=== PATIENT | female | born 1955 | race African-American/Black ===

== ENCOUNTER → 2016-12-02 | Outpatient (CLI) | payer OTHER ==
[~2016-12-02] MED LIST: AMBIEN 10 MG TA10 MG PO; ASPIRIN EC81 M1 PO; BIAXIN500 MG PO; CENTRUM SILVER1 EAC3 PO; COLACE100 MG PO; DILTIAZEM 24HR240 M1 PO; FISH OIL 1,0001 EAC5 PO; FLAGYL500 MG PO; FLEXERIL PO; HYDROCODONE-APA1 TA1 PO; LEVOTHYROXIN0.075 MG PO; LORTAB 7.5/5001 TA3 PO; LYRICA150 MG PO; MIRALAX17 G1 PO; MIRALAX17 GM PO; NEURONTIN 300300 M1 PO; NORCO 10-325 T1 EACH PO; NORCO 5-325 TA1 EACH PO; NORVASC10 MG PO; ONDANSETRON HCL4 M2 PO; PEPCID20 MG PO; PERCOCET 10-321 EACH PO; PHENERGAN 25 MG25 M1 PO; PROTONIX40 M1 PO; SENNA PO; TRIAMTERENE-HC1 EAC1 PO; XANAX 0.25 MG0.25 MG PO
== END ==
LOC: RAD 11:35
DX: M54.5 Low back pain (principal); M25.552 Pain in left hip; M79.605 Pain in left leg

== ENCOUNTER → 2017-01-28 | Outpatient (CLI) | payer OTHER | LOC: RAD 14:40 | DX: R07.81 Pleurodynia (principal); J98.11 Atelectasis; G89.29 Other chronic pain; Z91.81 History of falling ==

== ENCOUNTER 2017-01-31 18:41 | Observation (INO) | payer OTHER ==
[~2017-01-31] VITALS: Ht 167.6 cm; Wt 114.8 kg
--- NOTE | ~2017-01-31 | EKG ---
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 : 1955 Requested By: Roberth Dalton Order Number: [id number] MD: Anastacio Peace Measurements Intervals [place] Rate: 92 P: 64 MS: 172 QRS: 78 QRSD: 108 T: 65 QT: 376 QTc: 466 Interpretive Statements Sinus tachycardia Occasional atrial premature complexes Compared to ECG 12/30/2015 18:22:35 Nonspecific change in the ST and T-wave segments Ventricular premature complex(es) no longer present Electronically Signed On 02-02-2017 8:01:45 CDT by Anastacio Peace [email or web address] <ELECTRONICALLY SIGNED> By: Anastacio Peace MD, [facility] 02/02/17 0801 [id number] 1844 Anastacio Peace MD, [facility] /EPI
[2017-01-31 20:26] LABS: ANION GAP 10 mmol/L (7-16); BUN 7 mg/dL (7-18); CALCIUM 9.5 mg/dL (8.5-10.1); CHLORIDE 102 mmol/L (98-107); CO2 25 mmol/L (21-32); CREATININE 0.6 mg/dL (0.6-1.0); GLUCOSE 139 mg/dL (74-106); POTASSIUM 3.5 mmol/L (3.5-5.1); SODIUM 137 mmol/L (136-145)
[2017-01-31 20:33] LABS: ALBUMIN 4.1 g/dL (3.4-5.0); ALKALINE PHOSPHATASE 61 U/L (46-116); DIRECT BILIRUBIN 0.1 mg/dL (<0.1-0.3); SGOT 23 U/L (15-37); SGPT 20 U/L (30-65); TOTAL BILIRUBIN 0.5 mg/dL (<0.1-1.0); TOTAL PROTEIN 8.3 g/dL (6.4-8.2); TROPONIN-I < 0.04 ng/mL (<0.04-0.07)
[2017-01-31 23:17] LABS: ABSOLUTE NEUTROPHILS 5.6 thou/uL (1.4-8.2); BASOPHILS 0.2 % (0.0-2.0); HEMATOCRIT 45.5 % (37.0-47.0); HEMOGLOBIN 15.4 gm/dL (12.0-15.0); LYMPHOCYTES 13.8 % (24.0-44.0); MCH 31.7 pg (26.0-34.0); MCHC 33.9 g/dL (28.0-37.0); MCV 93.6 fL (80.0-100.0); MONOCYTES 2.8 % (1.0-8.0); PLATELET COUNT 196 thou/uL (150-400); POLYS 83.2 % (36.0-66.0); RBC 4.86 mil/uL (4.20-5.00); RDW 13.9 % (10.5-14.5); WBC 6.8 thou/uL (4.0-11.0)
[2017-01-31 23:19] LABS: MANUAL DIFF NO
[2017-02-01] VITALS (7 sets, daily range): BP systolic 135–175; BP diastolic 65–102
[2017-02-01] MEDS ORDERED: XANAX 0.5 MG0.5 MG PO (02:48)
[2017-02-01] MEDS ORDERED: AMBIEN 5 MG TABL5 M1 PO (02:51)
[2017-02-01 05:16] LABS: CHOLESTEROL 219 mg/dL (<200); HDL CHOLESTEROL 60 mg/dL (>40); LDL CHOLESTEROL 153 mg/dL (<100); TC:HDL 3.7 Ratio (Not establshd); TRIGLYCERIDE 34 mg/dL (<150); TROPONIN-I < 0.04 ng/mL (<0.04-0.07); VLDL 7 mg/dL (<40)
[2017-02-01 05:24] LABS: SERUM ASSESSMENT Clear
[2017-02-02 04:37] VITALS: BP 178/100
[2017-02-02 05:39] LABS: HEMATOCRIT 43.5 % (37.0-47.0); HEMOGLOBIN 14.9 gm/dL (12.0-15.0); MCH 31.7 pg (26.0-34.0); MCHC 34.3 g/dL (28.0-37.0); MCV 92.6 fL (80.0-100.0); RBC 4.7 mil/uL (4.20-5.00); RDW 13.8 % (10.5-14.5); WBC 10.7 thou/uL (4.0-11.0)
[2017-02-02 05:48] LABS: CALCIUM 9.2 mg/dL (8.5-10.1); CREATININE 0.5 mg/dL (0.6-1.0)
[2017-02-02 05:49] LABS: POTASSIUM 2.9 mmol/L (3.5-5.1)
[2017-02-02 07:47] VITALS: BP 179/97
[2017-02-02 11:43] VITALS: BP 163/93
[2017-02-02 19:35] VITALS: BP 179/96
[2017-02-02 23:28] VITALS: BP 174/104
[2017-02-03 04:21] VITALS: BP 174/98
[2017-02-03 05:12] LABS: GLYCOHEMOGLOBIN (HGB A1C) 5.4 % (4.8-5.6)
[2017-02-03 05:12] LABS: GLYCOHEMOGLOBIN (HGB A1C) 5.4 % (4.8-5.6)
[2017-02-03 08:10] VITALS: BP 175/103
[2017-02-03 11:32] VITALS: BP 178/118
[2017-02-03 15:48] VITALS: BP 168/99
[2017-02-03 20:00] VITALS: BP 179/123
[2017-02-04] VITALS: BP 160/91
[2017-02-04 04:00] VITALS: BP 142/96
[2017-02-04 08:52] VITALS: BP 148/111
[2017-02-04 11:24] VITALS: BP 169/110
[2017-02-04 12:14] VITALS: BP 169/110
== END 2017-02-04 12:41 | disposition home or self-care (01) ==
LOC: ER 18:41 → 4W 02-01 00:07 → EROBS 02-01 00:07 → 4W 02-01 00:41
PROVIDERS: Emergency Medicine; Internal Medicine; Nurse Practitioner Family
DX: R10.12 Left upper quadrant pain (principal); E78.5 Hyperlipidemia, unspecified; R07.89 Other chest pain; R73.09 Other abnormal glucose; I10 Essential (primary) hypertension; Z72.0 Tobacco use

== ENCOUNTER 2018-02-19 10:53 | Inpatient (IN) | payer OTHER ==
[~2018-02-19] VITALS: Ht 167.6 cm; Wt 117.9 kg
--- NOTE | ~2018-02-19 | HC ---
[facility] [place] [address] CONSULTATION Name: ERIKA RODRIGUEZ Room #: 428-P ADM IN M.R.#: [id number] Admission: 02/19/18 Attend Phys: Dinh Leo MD Discharge: Date of : 55 Report #: [id number] THIS REPORT FOR: //name// CC: Dinh Mckeon MD DATE OF SERVICE: 02/21/2018 REASON FOR CONSULTATION: History of ear pain with myringotomy. HISTORY OF PRESENT ILLNESS: The patient is a 62-year-old female who has had a 10-day history post-myringotomy of having nausea and vomiting started about 5 days ago. She subsequently admitted to the hospital and placed on IV antibiotics for urinary tract infection, which is the reason that she stays admitted at this time. She says after myringotomy, she has had increased ability to be over here and her sense of smell has acutely increased. She was on Flonase prior to the myringotomy was switched to Claritin and since then feels like she is having popping and crackling, but does think that she is hearing better. She denies any significant vertigo. She did have some weakness and lethargy related to her urinary tract infection. Otherwise, she has no complications from the myringotomy, which was performed by Dr. Batres at [facility] 10 days ago. PAST MEDICAL HISTORY: Significant for abdominal pain, chest pain, dehydration, generalized weakness, hyperbilirubinemia, hypertension, hypokalemia, intractable nausea and vomiting, left lower quadrant pain, heart palpitations, urinary tract infection. ALLERGIES: None. SOCIAL HISTORY: Her is present during the exam and is supportive and asks questions. She is a half pack per day smoker. FAMILY HISTORY: Noncontributory to this problem. REVIEW OF SYSTEMS: Significant for crackling and popping in her ears. Nausea, which has improved. PHYSICAL EXAMINATION: GENERAL: She is a well-developed female who is resting comfortably, sitting up in bed. HEENT: Head is normocephalic. Pupils are equal, round and reactive to light. Tympanic membranes are intact. She has had previous myringotomy with the myringotomy has since closed. Nasal: No active rhinorrhea. Oral cavity: No [address] [address] CONSULTATION Name: ERIKA RODRIGUEZ CHACHO Room #: 428-P [facility] M.R.#: [id number] Admission: 02/19/18 Attend Phys: Dinh Leo MD Discharge: Date of : 55 Report #: [id number] . NECK: No palpable adenopathy. IMPRESSION: 1. Eustachian tube dysfunction, recent otitis media post-myringotomy from 10 days ago with no complications from the myringotomy. 2. Admitted for urinary tract infection. It is my impression that her recent myringotomy which was performed by Dr. Batres at [facility] has absolutely nothing to do with her current admission, rather this is urinary tract infection. She is being treated for her other medical problems. I did answer all of her questions related to eustachian tube dysfunction and her ongoing usage of Claritin as well as adding Mucinex once her urinary tract infection has improved. By: [id number] Jakub Bonner MD /nt
--- NOTE | ~2018-02-19 | EKG ---
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 : 1955 Requested By: Marisela Cruz Order Number: [id number] MD: Anastacio Peace Measurements Intervals [place] Rate: 92 P: 51 MA: 149 QRS: 56 QRSD: 103 T: 33 QT: 386 QTc: 478 Interpretive Statements Sinus rhythm Ventricular premature complex RSR' in V1 or V2, probably normal variant Abnormal T, consider ischemia, anterior leads Compared to ECG 01/31/2017 18:44:21 Ventricular premature complex(es) now present Electronically Signed On 02-19-2018 16:41:43 CDT by Anastacio Peace [email or web address] <ELECTRONICALLY SIGNED> By: Anastacio Peace MD, [facility] 02/19/18 1641 1114 1114 Anastacio Peace MD, [facility] /EPI
[~2018-02-19 10:53] MED LIST changes: +AMBIEN 5 MG TABL5 M1 PO; +XANAX 0.5 MG0.5 MG PO
[2018-02-19 10:56] VITALS: BP 192/117
[2018-02-19] MEDS ORDERED: ZOFRAN ODT4 MG PO (11:08)
[2018-02-19] MEDS ORDERED: CELEXA 20 MG TA20 MG PO (11:09)
[2018-02-19 11:23] LABS: ABSOLUTE NEUTROPHILS 7.5 thou/uL (1.4-8.2); BASOPHILS 0.8 % (0.0-2.0); EOSINOPHILS 0.2 % (0.0-3.0); HEMATOCRIT 49.1 % (37.0-47.0); LYMPHOCYTES 18.3 % (24.0-44.0); MCH 32.3 pg (26.0-34.0); MCHC 34.7 g/dL (28.0-37.0); MCV 93.1 fL (80.0-100.0); MONOCYTES 7.8 % (1.0-8.0); PLATELET COUNT 181 thou/uL (150-400); POLYS 72.9 % (36.0-66.0); RBC 5.27 mil/uL (4.20-5.00); RDW 14.2 % (10.5-14.5); WBC 10.3 thou/uL (4.0-11.0)
[2018-02-19 11:31] LABS: ANION GAP 11 mmol/L (7-16); BUN 16 mg/dL (7-18); CALCIUM 9.9 mg/dL (8.5-10.1); CHLORIDE 99 mmol/L (98-107); CO2 27 mmol/L (21-32); CREATININE 0.9 mg/dL (0.6-1.0); GLUCOSE 117 mg/dL (74-106); POTASSIUM 3.1 mmol/L (3.5-5.1); SODIUM 137 mmol/L (136-145)
[2018-02-19 11:40] LABS: LIPASE 137 U/L (73-393); SGOT 50 U/L (15-37); SGPT 72 U/L (30-65); TOTAL BILIRUBIN 1.3 mg/dL (<0.1-1.0); TOTAL PROTEIN 8.7 g/dL (6.4-8.2); TROPONIN-I <0.06 ng/mL (<0.06)
[2018-02-19 11:48] LABS: URINE BLOOD NEGATIVE (Negative); URINE COLOR YELLOW; URINE GLUCOSE-RANDOM* NEGATIVE (Negative); URINE KETONES 2+ (Negative); URINE LEUKOCYTES-REFLEX NEGATIVE (Negative); URINE PROTEIN (DIPSTICK) 2+ (Negative); URINE SPECIFIC GRAVITY 1.025 (1.005-1.035)
[2018-02-19 11:50] LABS: URINE NITRITE-REFLEX POSITIVE (Negative)
[2018-02-19 11:51] LABS: ICTOTEST (BILI CONFIRMATORY) Negative (Negative); URINE BILIRUBIN NEGATIVE (Negative); URINE CLARITY SL HAZY
[2018-02-19 11:55] LABS: CASTS None Seen /LPF (None Seen); CRYSTALS None Seen /LPF (None Seen); MUCUS >6 Heavy strn/LPF (None Seen); SQUAMOUS 0-3 Few /LPF (0-3); URINE RBC None Seen /HPF (0-2); URINE WBC-REFLEX 0-5 Rare /HPF (0-5)
[2018-02-19 12:59] LABS: LARGE PLATELETS FEW
[2018-02-19 16:24] VITALS: BP 179/121
[2018-02-19 18:40] VITALS: BP 178/110
[2018-02-19 19:50] VITALS: BP 174/87
[2018-02-19 21:08] VITALS: BP 176/115
[2018-02-20 01:22] VITALS: BP 163/106
[2018-02-20 04:10] VITALS: BP 162/83
[2018-02-20 06:56] VITALS: BP 165/90
[2018-02-20 17:45] VITALS: BP 163/90
[2018-02-20 20:00] VITALS: BP 140/70
[2018-02-21 05:00] VITALS: BP 118/59
[2018-02-21 05:05] LABS: ABSOLUTE NEUTROPHILS 4.8 thou/uL (1.4-8.2); BASOPHILS 0.7 % (0.0-2.0); EOSINOPHILS 2.7 % (0.0-3.0); HEMATOCRIT 45.1 % (37.0-47.0); HEMOGLOBIN 15.5 gm/dL (12.0-15.0); LYMPHOCYTES 28.3 % (24.0-44.0); MCH 32.6 pg (26.0-34.0); MCHC 34.4 g/dL (28.0-37.0); MCV 94.9 fL (80.0-100.0); PLATELET COUNT 169 thou/uL (150-400); POLYS 58.3 % (36.0-66.0); RBC 4.75 mil/uL (4.20-5.00); RDW 14.7 % (10.5-14.5); WBC 8.3 thou/uL (4.0-11.0)
[2018-02-21 05:16] LABS: CALCIUM 8.7 mg/dL (8.5-10.1); CREATININE 0.8 mg/dL (0.6-1.0); POTASSIUM 3.5 mmol/L (3.5-5.1)
[2018-02-21 13:54] VITALS: BP 105/61
[2018-02-21 15:25] VITALS: BP 120/53; BP 135/75
[2018-02-21 19:46] VITALS: BP 146/70
[2018-02-22 08:16] VITALS: BP 140/78
[2018-02-22] MEDS ORDERED: ANTIVERT25 MG PO (10:16)
[2018-02-22 12:08] VITALS: BP 140/78
== END 2018-02-22 13:00 | disposition home or self-care (01) | DRG 690 ==
LOC: ER 10:53 → SICU 12:38 → EROBS 12:38 → 4E 18:00 → SICU 02-21 09:15 → 4E 02-21 14:18 → SICU 02-21 17:44 → ENTRNSPT 02-22 12:44 → EDTRNSPTSTS 02-22 12:48 → SICU 02-22 13:00
PROVIDERS: Hospitalist; Nurse Practitioner Family
DX: N39.0 Urinary tract infection, site not specified (principal); I16.0 Hypertensive urgency; E86.0 Dehydration; E80.6 Other disorders of bilirubin metabolism; F41.9 Anxiety disorder, unspecified; G89.29 Other chronic pain; E03.9 Hypothyroidism, unspecified; M54.9 Dorsalgia, unspecified; M54.2 Cervicalgia; E87.6 Hypokalemia; F17.210 Nicotine dependence, cigarettes, uncomplicated; Z90.49 Acquired absence of other specified parts of digestive tract; Z90.710 Acquired absence of both cervix and uterus; Z79.899 Other long term (current) drug therapy
CPT/HCPCS: 10183; 15000

== ENCOUNTER 2018-07-16 09:11 | Emergency (ER) | payer OTHER ==
[~2018-07-16] VITALS: Ht 167.6 cm; Wt 127.0 kg
[~2018-07-16 09:11] MED LIST changes: +ANTIVERT25 MG PO; +CELEXA 20 MG TA20 MG PO; +ZOFRAN ODT4 MG PO
[2018-07-16 10:12] LABS: CALCIUM 9.6 mg/dL (8.5-10.1); CREATININE 0.7 mg/dL (0.6-1.0)
[2018-07-16 10:19] LABS: ALBUMIN 3.9 g/dL (3.4-5.0); TOTAL BILIRUBIN 0.4 mg/dL (<0.1-1.0); TOTAL PROTEIN 8.8 g/dL (6.4-8.2)
[2018-07-16 10:20] LABS: URINE BILIRUBIN 1+ (Negative); URINE BLOOD TRACE (Negative); URINE CLARITY CLEAR; URINE COLOR YELLOW; URINE GLUCOSE-RANDOM* NEGATIVE (Negative); URINE KETONES TRACE (Negative); URINE LEUKOCYTES-REFLEX NEGATIVE (Negative); URINE NITRITE-REFLEX NEGATIVE (Negative); URINE PROTEIN (DIPSTICK) 2+ (Negative); URINE SPECIFIC GRAVITY >= 1.030 (1.005-1.035)
[2018-07-16 10:22] LABS: ICTOTEST (BILI CONFIRMATORY) Positive (Negative)
[2018-07-16 10:25] LABS: ABSOLUTE NEUTROPHILS 4.5 thou/uL (1.4-8.2); BASOPHILS 0.4 % (0.0-2.0); HEMATOCRIT 49.9 % (37.0-47.0); HEMOGLOBIN 17.1 gm/dL (12.0-15.0); LYMPHOCYTES 21.2 % (24.0-44.0); MCH 31.3 pg (26.0-34.0); MCHC 34.2 g/dL (28.0-37.0); MCV 91.3 fL (80.0-100.0); MONOCYTES 9.3 % (1.0-8.0); PLATELET COUNT 212 thou/uL (150-400); POLYS 69.1 % (36.0-66.0); RBC 5.47 mil/uL (4.20-5.00); RDW 14.4 % (10.5-14.5); WBC 6.5 thou/uL (4.0-11.0)
[2018-07-16 10:28] LABS: SQUAMOUS 4-10 Moderate /LPF (0-3)
[2018-07-16 10:29] LABS: MUCUS 4-6 Moderate strn/LPF (None Seen); URINE RBC 0-2 Rare /HPF (0-2); URINE WBC-REFLEX 0-5 Rare /HPF (0-5)
[2018-07-16 10:30] LABS: BACTERIA-REFLEX 1-9 Few /HPF (None Seen); CRYSTALS None Seen /LPF (None Seen); HYALINE CASTS 0-3 Few /LPF (None Seen)
[2018-07-16] MEDS ORDERED: PHENERGAN 25 MG25 M1 PO (12:59)
[2018-07-16] MEDS ORDERED: ZOFRAN ODT4 MG PO (12:59)
[2018-07-16] MEDS ORDERED: BENTYL 20 MG TA20 M1 PO (12:59)
[2018-07-16 13:51] VITALS: BP 173/105
== END 2018-07-16 13:52 | disposition home or self-care (01) ==
LOC: ER 09:11
PROVIDERS: Emergency Medicine; Family Medicine
DX: K52.9 Noninfective gastroenteritis and colitis, unspecified (principal); F17.210 Nicotine dependence, cigarettes, uncomplicated; I10 Essential (primary) hypertension; F41.9 Anxiety disorder, unspecified; F32.9 Major depressive disorder, single episode, unspecified; E03.9 Hypothyroidism, unspecified; Z90.710 Acquired absence of both cervix and uterus; Z90.49 Acquired absence of other specified parts of digestive tract

== ENCOUNTER 2020-03-29 10:38 | Emergency (ER) | payer OTHER ==
[~2020-03-29] VITALS: Ht 167.6 cm; Wt 116.1 kg
[~2020-03-29 10:38] MED LIST changes: +BENTYL 20 MG TA20 M1 PO
[2020-03-29] MEDS ORDERED: DESYREL150 MG PO (12:10)
[2020-03-29] MEDS ORDERED: DESVENLAFAXINE50 M3 PO (12:10)
[2020-03-29] MEDS ORDERED: FLONASE 0.05%50 MCG NARES (12:10)
[2020-03-29] MEDS ORDERED: LIDODERM1 EACH TOP (13:43)
[2020-03-29 13:47] VITALS: BP 128/78
== END 2020-03-29 13:47 | disposition home or self-care (01) ==
LOC: ER 10:38
DX: G89.29 Other chronic pain (principal); M25.511 Pain in right shoulder; M54.2 Cervicalgia; M54.5 Low back pain; I10 Essential (primary) hypertension; F32.9 Major depressive disorder, single episode, unspecified; F41.9 Anxiety disorder, unspecified; F17.210 Nicotine dependence, cigarettes, uncomplicated; Z90.49 Acquired absence of other specified parts of digestive tract; Z90.711 Acquired absence of uterus with remaining cervical stump; Z79.899 Other long term (current) drug therapy

== ENCOUNTER 2020-03-30 21:14 | Emergency (ER) | payer OTHER ==
[~2020-03-30] VITALS: Ht 167.6 cm; Wt 113.4 kg
[~2020-03-30 21:14] MED LIST changes: +DESVENLAFAXINE50 M3 PO; +DESYREL150 MG PO; +FLONASE 0.05%50 MCG NARES; +LIDODERM1 EACH TOP
[2020-03-30 22:15] LABS: ABSOLUTE NEUTROPHILS 4.7 thou/uL (1.4-8.2); BASOPHILS 0.7 % (0.0-2.0); EOSINOPHILS 0.3 % (0.0-3.0); HEMATOCRIT 39.4 % (37.0-47.0); HEMOGLOBIN 13.8 gm/dL (12.0-15.0); LYMPHOCYTES 30.9 % (24.0-44.0); MCH 33.4 pg (26.0-34.0); MCHC 35.1 g/dL (28.0-37.0); MCV 95.1 fL (80.0-100.0); MONOCYTES 8.1 % (1.0-8.0); PLATELET COUNT 174 thou/uL (150-400); RBC 4.15 mil/uL (4.20-5.00); RDW 13.9 % (10.5-14.5); WBC 7.9 thou/uL (4.0-11.0)
[2020-03-30 22:40] LABS: ALBUMIN 3.4 g/dL (3.4-5.0); CALCIUM 9.1 mg/dL (8.5-10.1); CREATININE 0.8 mg/dL (0.6-1.0); TOTAL BILIRUBIN 0.7 mg/dL (0.2-1.0); TOTAL PROTEIN 7.3 g/dL (6.4-8.2)
[2020-03-30 22:42] LABS: POTASSIUM 2.9 mmol/L (3.5-5.1)
[2020-03-31] MEDS ORDERED: PHENERGAN 25 MG25 M1 PO (02:41)
[2020-03-31] MEDS ORDERED: CYCLOBENZAPRINE5 MG PO (02:41)
[2020-03-31 02:58] VITALS: BP 163/109
== END 2020-03-31 03:00 | disposition home or self-care (01) ==
LOC: ER 21:14
PROVIDERS: Emergency Medicine
DX: S39.012A Strain of muscle, fascia and tendon of lower back, initial encounter (principal); R11.2 Nausea with vomiting, unspecified; G89.4 Chronic pain syndrome; I10 Essential (primary) hypertension; F17.210 Nicotine dependence, cigarettes, uncomplicated; Z90.49 Acquired absence of other specified parts of digestive tract; Z90.710 Acquired absence of both cervix and uterus; Z79.899 Other long term (current) drug therapy; X58.XXXA Exposure to other specified factors, initial encounter; Y93.89 Activity, other specified; Y92.89 Other specified places as the place of occurrence of the external cause; Y99.8 Other external cause status

== ENCOUNTER → 2020-04-16 | Outpatient (CLI) | payer OTHER ==
[~2020-04-16] VITALS: Ht 167.6 cm; Wt 93.0 kg
[~2020-04-16] MED LIST changes: -AMBIEN 5 MG TABL5 M1 PO; +CALCIUM + VITA1 EACH PO; +CARDIZEM CD 30300 M1 PO; +CYCLOBENZAPRINE5 MG PO; -DILTIAZEM 24HR240 M1 PO; +HYDROCODON-ACE1 EAC5 PO; +LEXAPRO20 MG PO; +ONDANSETRON HCL4 M3 PO; -TRIAMTERENE-HC1 EAC1 PO; +TRIAMTERENE-HC1 EAC3 PO; +VITAMIN D3 COM1 EACH PO; +XANAX1 MG PO
--- NOTE | ~2020-04-16 | HPC ---
[facility] [place] [address] PAIN MANAGEMENT CONSULTATION Name: ERIKA RODRIGUEZ Room #: REG NIK SaldivarLolisAmandaLolis#: [id number] Admission: 04/16/20 Attend Phys: Serjio Martínez MD Discharge: Date of : 55 Report #: [id number] THIS REPORT FOR: cc: Lexi Mckeon MD,Lexi Martínez,Serjio Alatorre MD ~ CC: LEXI Martínez DATE OF SERVICE: 04/16/2020 CHIEF COMPLAINT: Chronic neck pain radiating into the right arm. HISTORY OF PRESENT ILLNESS: The patient is a 64-year-old who Dr. Mckeon has asked me to see today due to chronic pain syndrome. She has been experiencing neck pain with radiation into the right arm consistent with cervical radiculopathy for many years. She reports falling downstairs in the basement as early as 2007 and was in such pain that she was started on pain medications. For the most part, she reports being on pain medications at some level since that time to control her pain. She has also seen multiple pain physicians throughout the community. She lists Dr. Rai, Dr. Joy, Dr. Turner at [facility], Dr. Soliz and Dr. Good at [facility], all as physicians, who have treated her over the years. None of those physicians; however, have provided pain medications. They have only given injections. Dr. Sayed within the last to see her and provided her with cervical epidural injections, which were very helpful for her radiculopathy. Then for some reason, he also provided her treatments using radiofrequency along the right side of her neck. She is uncertain of what benefit may have occurred as a result of that procedure. She stopped seeing him because she enjoyed going to the [facility] [place] office, but did not like going down where she thought they were not taking things seriously and she describes as more flippant attitude. She complains today of pain as a 10/10 every single day. Pain is mostly in the neck, described this crippling extending down her right arm. It follows a C6-C7 distribution. MEDICATIONS: Flonase, calcium D3, alprazolam 0.5-1 mg, which has been tapered over the last few months by Dr. Mckeon, levothyroxine, zolpidem 10 mg at bedtime, Lexapro, diltiazem, and triamterene/hydrochlorothiazide. ALLERGIES: None. PAST MEDICAL HISTORY: Positive for hypertension, depression, anxiety, insomnia, cervical radiculopathy, hypothyroidism. [address] [address] PAIN MANAGEMENT CONSULTATION Name: JENNIFERERIKA Room #: REG NIK De Oliveira#: [id number] Admission: 04/16/20 Attend Phys: Serjio Martínez MD Discharge: Date of : 55 Report #: [id number] PAST SURGICAL HISTORY: Cholecystectomy and hysterectomy. SOCIAL HISTORY: She is unemployed. She smokes cigarettes for 40 years of her life and currently continues to smoke 6 to 10 cigarettes per day. She denies use of alcohol, marijuana or any other illicit drugs. Pain impact score maximum is 70, she scored 65, describing impacts of pain under general activity, normal work, relationships with others, sleep and enjoyment of life, 10/10. REVIEW OF SYSTEMS: Positive for weight gain, night sweats, fatigue, weakness, loss of appetite, constipation, nausea, nocturia, nervousness, anxiety, depression and insomnia. PHYSICAL EXAMINATION: GENERAL: A pleasant female, wearing a mask for COVID restrictions. She is 5 feet 6 inches, 205 pounds, BMI is 33.1. VITAL SIGNS: Blood pressure 141/84, heart rate 62, respirations 16, O2 sat 96. She moves independently from sitting to standing position, ambulates with normal gait. HEENT: Normal. NECK: Decreased range of motion, particularly in extension, qjkw-id-kudv rotation and lateral tilt. She has a positive Spurling's test with pain radiating in the C6-C7 distribution. Deep tendon reflexes are diminished in biceps and triceps. 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 CHEST: Clear. CARDIAC: Rhythm regular. ABDOMEN: Obese. IMPRESSION: 1. Chronic pain syndrome with cervical radiculopathy is primary complaint. 2. Hypertension. 3. Morbid obesity. 4. Hypothyroidism. 5. Chronic anxiety disorder. 6. Insomnia. 7. Chronic depression, on antidepressant therapy. RECOMMENDATIONS: I spent roughly 30-45 minutes with the patient and her . She reports sadness and depression at being unable to do much because of her pain. It is her inability to assist around the house or to do the things that she enjoys that seemed to provide the most depression. Her anxiety is chronic and we did not explore it. She has found alprazolam to be helpful. [facility] [address] [place] [address] PAIN MANAGEMENT CONSULTATION Name: JENNIFER,ERIKA CHACHO Room #: REG NIK De Oliveira#: [id number] Admission: 04/16/20 Attend Phys: Serjio Martínez MD Discharge: Date of : 55 Report #: [id number] We discussed concerns about polypharmacy first. She is on 4 centrally acting drugs, five if you include Flexeril, which she takes very occasionally, perhaps once a month. On a daily basis; however, she takes Lexapro, Ambien, alprazolam and hydrocodone. I did not mention sleep apnea, but she has been sent for testing. The combination of the benzodiazepine and opioid were reviewed, although she has been on it for a number of years and seems to be able to take it safely. We discussed other ways of managing anxiety including meditation, exercise and prayer. I have recommended that she taper her alprazolam and especially if she wants to take a stronger pain medication to help with her neck pain. I reviewed her opioid risk score, which is a self scoring test and she neglected to fill it out. We will discuss that with her at the followup visit. Her current request for pain medication is hydrocodone 10/325 one tablet 3 times daily. At 30 MME, she feels that she has much higher level of function. She carefully has safeguarded her medication in the past by her report. Dr. Mckeon has provided this for her, but has done a nice job of tapering her from 120 tablets a month to 90. An effort has been made also to taper her alprazolam from 1 mg 3 times a day to 0.5 mg 3 times a day. Her last prescription was for 0.5 on 04/05/2020. I have agreed to provide her hydrocodone for her at 3 tablets a day for the time being. We will establish her on a regular dose to make sure that she is not misusing or abusing her medicines, check a urine drug screen and if she seems stable, I think that she could be managed by her primary care physician at that dose. I would also continue to work to the lowest effective dose of alprazolam and to that effect, I would have her take it on a p.r.n. basis reducing her number of pills a day from 3 to p.r.n., preferably taking it only for severe anxiety and using nonmedicinal approaches to manage her anxiety otherwise. Healthy behaviors will also be beneficial to her. We discussed stopping her tobacco use of many years and that difficult task should be a part of each visit in our office along with alternative measures of providing pain relief including daily walks and regular exercise. I have written 1 prescription for hydrocodone . I have encouraged her to stick with Dr. Mckeon to manage her other health conditions. When she returns in a month, we will perform a urine drug screen, provide another month of medication and evaluate. Importance of safeguarding medication was tantamount. We discussed the opioid crisis and how it occurred. She understands that she has a strong responsibility in taking these medications as prescribed by a physician. I [address] [address] PAIN MANAGEMENT CONSULTATION Name: ERIKA RODRIGUEZ CHACHO Room #: REG NIK De Oliveira#: [id number] Admission: 04/16/20 Attend Phys: Serjio Martínez MD Discharge: Date of : 55 Report #: [id number] reviewed the prescription drug monitoring program information. Followup visit planned in 1 month. By: [id number] Serjio Martínez MD /nt
[2020-04-16 10:44] VITALS: BP 141/84
--- NOTE | 2020-04-16 11:14 | NUR ---
Pain Clinic Assessment: 1. History of Osteoarthritis: Not Applicable History of Rheumatoid Arthritis: Not Applicable 2. Height: 5 ft. 6 in. 167.6 cm. Weight: 205.0 lb. oz. 92.988 kg. Patient's BMI: 33.1 3. Vital Signs: BP: 141/84 Pulse: 62 Resp: 16 Temp: 02 Sat: 96 ECG Mon: 4. Pain Intensity: 10 5. Fall Risk: Dizziness: Y Needs help standing or walking: N Fallen in the last 3 months: N Fall risk comments: 6. Patient on Blood Thinner: None 7. History of Hypertension: Y 8. Opioid Therapy greater than 6 weeks: Y Opiate Contract Signed: 9. Risk Assessment Tool Provided: 10. Functional Assessment Tool: 65/ 11. Recreational Drug Use: Unknown Drug Type: Tobacco Use: Current Every Day Smoker Tobacco Type: Cigarettes Amount or Packs/day: 1/2 How Many Years: 40 Alcohol Use: No Frequency: Quant:
== END ==
LOC: PAIN 06:57
PROVIDERS: ATTEND Anesthesiology Pain Medicine
DX: M54.12 Radiculopathy, cervical region (principal); I10 Essential (primary) hypertension; E66.01 Morbid (severe) obesity due to excess calories; G47.00 Insomnia, unspecified; E03.9 Hypothyroidism, unspecified; F41.8 Other specified anxiety disorders; Z79.899 Other long term (current) drug therapy

== ENCOUNTER → 2020-05-07 | Outpatient (CLI) | payer OTHER ==
[~2020-05-07] VITALS: Ht 167.6 cm; Wt 112.2 kg
[~2020-05-07] MED LIST changes: +MOBIC15 MG PO
[2020-05-07 08:55] VITALS: BP 164/96
--- NOTE | 2020-05-07 09:10 | NUR ---
Pain Clinic Assessment: 1. History of Osteoarthritis: DENIES History of Rheumatoid Arthritis: DENIES 2. Height: 5 ft. 6 in. 167.6 cm. Weight: 247.4 lb. oz. 112.220 kg. Patient's BMI: 40.0 3. Vital Signs: BP: 164/96 Pulse: 99 Resp: 16 Temp: 02 Sat: 98 ECG Mon: 4. Pain Intensity: 9 5. Fall Risk: Dizziness: N Needs help standing or walking: N Fallen in the last 3 months: N Fall risk comments: 6. Patient on Blood Thinner: None 7. History of Hypertension: Y 8. Opioid Therapy greater than 6 weeks: Y Opiate Contract Signed: 9. Risk Assessment Tool Provided: 10. Functional Assessment Tool: 65/70 11. Recreational Drug Use: Unknown Drug Type: Tobacco Use: Current Every Day Smoker Tobacco Type: Cigarettes Amount or Packs/day: 1 How Many Years: 23 Alcohol Use: No Frequency: Quant:
--- NOTE | 2020-05-08 07:56 | HPC ---
[facility] [address] [place] [address] PAIN MANAGEMENT CONSULTATION Name: ERIKA RODRIGUEZ Room #: REG HUMAJennifer De Oliveira#: [id number] Admission: 05/07/20 Attend Phys: Valencia Chase Discharge: Date of : 55 Report #: [id number] CC: Valencia Martínez MD DATE OF SERVICE: 05/07/2020 CHIEF COMPLAINT: Chronic neck pain and right shoulder and arm pain. HISTORY OF PRESENT ILLNESS: This is a 64-year-old female, who returns to the pain clinic today to discuss her opioid medications as well as her new right shoulder MRI. The patient reports a pain score today of 9/10, most significantly in her right shoulder. It is a constant, burning, cramping, sharp pain that is alieved some by medications. She feels that any movement in her arm exacerbates her pain. She is here to discuss her medications as well as discuss her MRI with Dr. Serjio Martínez. The patient states that she is off her alprazolam. When she had her MRI of her right shoulder, she was given Valium. She was wondering if we could prescribe that for her today. ALLERGIES: No known drug allergies. CURRENT MEDICATIONS: Hydrocodone 10/325 t.i.d., vitamin D, calcium, Lexapro, Flonase, levothyroxine, Cardizem, triamterene. PQRS: 1. 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 She denies any rheumatoid arthritis. 2. Height is 5 feet 6 inches, weight is 247, BMI is 40. Vital signs 164/96, pulse is 99, respirations 16, oxygen sat is 98%. Pain score is 9/10. 3. Fall risk. Denies dizziness, does not need help walking or standing, has not fallen in the last 3 months. The patient is not on any blood thinners, but does take medicine for hypertension. Her opioid therapy is greater than 6 weeks. We will have her sign an opioid contract today. Risk assessment is low. Functional assessment 65/70. 4. Recreational drug use, she denies. She is a current smoker of 1 pack of cigarettes a day and does not drink alcohol. According to the prescription monitoring system, the patient is filling her hydrocodone in a timely fashion. She reports her last alprazolam prescription was in April and she is no longer taking that medication. Her morphine mEq according to the CDC guidelines is 30. We will check a random drug screen on the patient today. She states her medication was yesterday. PHYSICAL EXAMINATION: GENERAL: She is alert and orientated, pleasant 64-year-old female who appears her stated age, placing her current pain score at 9/10 today. HEENT: Normocephalic, atraumatic. Extraocular eye muscles are intact. She is wearing a mask. NECK: She has decreased range of motion in her neck as well as her right shoulder. Movement in her shoulder does increase her pain significantly. MUSCULOSKELETAL: She has a positive Spurling test with pain radiating from the C6-C7 distribution. 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 IMPRESSION: 1. Chronic pain syndrome and cervical radiculopathy. 2. Full thickness tear in her right shoulder. 3. Morbid obesity. 4. Chronic anxiety disorder. 5. Chronic depression, on antidepressant therapy. 6. Opioid medication under terms of written agreement. IMAGING: Right shoulder without contrast MRI. Findings are moderate supraspinatus and infraspinatus tendinosis with probable full thickness tear involving the distal anterior mild supraspinatus tendon, gwzhhric-vj-ovmcll glenohumeral joint degenerative changes. No fracture, bone contusion or soft tissue contusion. We reviewed the fact that opiate medications are being used to provide analgesia adequate to support activities of daily living, not attempting to achieve a specific pain score on the 0-10 Visual Analog Scale. The current opiate medications are providing sufficient analgesia to allow the patient to participate in activities of daily living. The patient is not exhibiting any aberrant behavior suggestive of drug diversion. The patient is not having any adverse reactions to medications. The patient is not suffering from daytime somnolence or mental acuity changes. The patient is managing opiate-induced constipation with appropriate suwy-evu-faldznw agents and dietary considerations. The patient was counseled on concern for caution with operating a motor vehicle while using opiate medications. PLAN: 1. We discussed treatment options with the patient today. First, we did review her MRI of her shoulder, which did show a full-thickness tear in her supraspinatus tendon. The patient does have an appointment with her orthopedic surgeon later this week. We will have him discuss this further to decide if she is a surgical candidate or physical therapy needs to be done prior to a possible surgery and if she would need an EMG. She does have numbness and tingling in that right arm. It could be from her cervical region or it could be related to her shoulder injury. 2. We discussed anti-inflammatory medications. The patient occasionally will take an Aleve hmsn-ggj-fzgeeec or Advil products. I think she may benefit from a nonsteroidal anti-inflammatory on a daily basis. It does look like she had tried meloxicam in the past, unsure if this was beneficial. We will start her on 15 mg once a day. The patient encouraged to take this for the entire month to see if that is beneficial in helping control some of her pain. She is encouraged to take this with food to help reduce any GI side effects. 3. The patient was wondering about taking Valium. She was given this medication for her MRI. I explained to her that, that is a benzodiazepine just like alprazolam. The patient has worked hard to stop her alprazolam due to her polypharmacy. At this time, we will not start this medication. I instructed her to discuss this with Dr. Mckeon who is her primary care doctor. 4. We will refill her hydrocodone 10/325, #90, for one additional month. The patient will be seen in 1-month intervals as we continue to stabilize her medications. 5. We will collect a random drug screen on this patient today and she will sign an opioid agreement that states she will only get opioid medications from our physicians. The patient verbalizes understanding. 6. Lastly, we did discuss briefly an anti-seizure neuropathic pain medications as gabapentin, Lyrica or Gralise. I informed her I do not want to start 2 medications at the same time to see which one is beneficial and we will await what her surgeon decides with her right shoulder. We may start that in the future. The patient states she had been on gabapentin in the past that was not beneficial. 7. The patient is seen today in collaboration with Dr. Serjio Martínez, who did come and see the patient as well today. <ELECTRONICALLY SIGNED> By: Valencia Chase 05/08/20 [id number] Valencia Chase /nt
== END ==
LOC: PAIN 06:54
PROVIDERS: ATTEND Clinical Nurse Specialist Adult Health
DX: M54.12 Radiculopathy, cervical region (principal); G89.4 Chronic pain syndrome; M25.511 Pain in right shoulder; M75.101 Unspecified rotator cuff tear or rupture of right shoulder, not specified as traumatic; F41.8 Other specified anxiety disorders; F11.20 Opioid dependence, uncomplicated; F32.9 Major depressive disorder, single episode, unspecified; Z79.899 Other long term (current) drug therapy

== ENCOUNTER → 2020-06-04 | Outpatient (CLI) | payer OTHER ==
[~2020-06-04] VITALS: Ht 167.6 cm; Wt 107.1 kg
[2020-06-04 14:13] VITALS: BP 138/91
--- NOTE | 2020-06-04 14:42 | NUR ---
Pain Clinic Assessment: 1. History of Osteoarthritis: right shoulder History of Rheumatoid Arthritis: DENIES 2. Height: 5 ft. 6 in. 167.6 cm. Weight: 236.2 lb. oz. 107.140 kg. Patient's BMI: 38.1 3. Vital Signs: BP: 138/91 Pulse: 88 Resp: 16 Temp: 02 Sat: 97 ECG Mon: 4. Pain Intensity: 10 5. Fall Risk: Dizziness: N Needs help standing or walking: N Fallen in the last 3 months: N Fall risk comments: 6. Patient on Blood Thinner: None 7. History of Hypertension: Y 8. Opioid Therapy greater than 6 weeks: Y Opiate Contract Signed: 9. Risk Assessment Tool Provided: 10. Functional Assessment Tool: 69/70 11. Recreational Drug Use: Never Drug Type: Tobacco Use: Current Every Day Smoker Tobacco Type: Cigarettes Amount or Packs/day: 1/2 ppd How Many Years: 30 Alcohol Use: No Frequency: Quant:
== END ==
LOC: PAIN 07:07
PROVIDERS: ATTEND Anesthesiology Pain Medicine
DX: M54.12 Radiculopathy, cervical region (principal); M25.512 Pain in left shoulder; Z79.899 Other long term (current) drug therapy; Z79.891 Long term (current) use of opiate analgesic

== ENCOUNTER → 2020-07-05 | Outpatient (CLI) | payer OTHER ==
[~2020-07-05] VITALS: Ht 167.6 cm; Wt 109.3 kg
[~2020-07-05] MED LIST changes: +DIAZEPAM 5 MG5 M1 PO; +ESCITALOPRAM OX20 MG PO; +VOLTAREN GEL 1100 G2 TOP
[2020-07-05 13:56] VITALS: BP 131/86
--- NOTE | 2020-07-05 14:16 | NUR ---
Pain Clinic Assessment: 1. History of Osteoarthritis: RIGHT SHOULDER PAIN History of Rheumatoid Arthritis: DENIES 2. Height: 5 ft. 6 in. 167.6 cm. Weight: 241.0 lb. oz. 109.317 kg. Patient's BMI: 38.9 3. Vital Signs: BP: 131/86 Pulse: 96 Resp: 18 Temp: 02 Sat: ECG Mon: 4. Pain Intensity: 8 5. Fall Risk: Dizziness: N Needs help standing or walking: N Fallen in the last 3 months: N Fall risk comments: 6. Patient on Blood Thinner: None 7. History of Hypertension: Y 8. Opioid Therapy greater than 6 weeks: Y Opiate Contract Signed: 9. Risk Assessment Tool Provided: 10. Functional Assessment Tool: 69/70 11. Recreational Drug Use: Never Drug Type: Tobacco Use: Current Every Day Smoker Tobacco Type: Cigarettes Amount or Packs/day: 1/2 How Many Years: 30 Alcohol Use: No Frequency: Quant:
--- NOTE | 2020-07-10 08:10 | HPC ---
[facility] [address] [address] PAIN MANAGEMENT CONSULTATION Name: ERIKA RODRIGUEZ Room #: REG NIK Alvino#: [id number] Admission: 07/05/20 Attend Phys: Valencia Chase Discharge: Date of : 55 Report #: [id number] THIS REPORT FOR: cc: Lexi Mckeon MD, Nora P. MD Hocker, Amanda CNS ~ CC: Valencia Martínez MD DATE OF SERVICE: 07/05/2020 CHIEF COMPLAINT: Chronic neck pain, right shoulder pain. HISTORY OF PRESENT ILLNESS: This is a pleasant 64-year-old female who returns today for discussion of her ongoing right shoulder issues as well as cervical pain. She does report that she is out of her medications today, rating her pain score as 8/10. Her pain is more significant in her right arm and shoulders, able to move her arm with increasing pain with any abduction or external rotation. She reports that her pain level is constant, though she does find the medications are beneficial in reducing some of her pain. The patient reports that she has been unable to get in touch with her primary care doctor for a refill of her Celexa (citalopram) and is wondering if we may refill that one time for her and offer her other names for primary care doctors. The patient does report having a second opinion with an orthopedic physician recently where he did inject her right shoulder. She felt that it was 20% beneficial in decreasing some of her pain. She is scheduled to see a third orthopedic surgeon, Dr. Jones in the next few weeks for another opinion regarding her full thickness tear in her supraspinatus on her right shoulder. ALLERGIES: No known drug allergies. CURRENT LIST OF MEDICATIONS: Diazepam 5 mg p.r.n., hydrocodone 10/325 p.r.n., vitamin D, calcium, Flonase, Synthroid, Cardizem, multivitamin, triamterene, hydrochlorothiazide, citalopram. PQRS: 1. She is positive for osteoarthritis in her shoulder. Denies any rheumatoid arthritis. 2. Height is 5 feet 6 inches, weight is 241, BMI is 38. 3. Vital signs 131/86, pulse is 96, respirations 18, oxygen sat is 98%. 4. Pain score is 8/10. 5. Denies dizziness, does not need assistance with ambulation. Has not fallen in the last 3 months. 6. The patient is not on any blood thinners, but does take medicine for hypertension. [address] [address] PAIN MANAGEMENT CONSULTATION Name: ERIKA RODRIGUEZ Room #: [facility] [id number] Admission: 07/05/20 Attend Phys: Valencia Chase Discharge: Date of : 55 Report #: [id number] 7. Opioid therapy is greater than 6 weeks. There is an opioid signed contract on the chart. Risk assessment is low. Functional assessment 69/70. 8. Recreational drug use, she denies. She is a current smoker of cigarettes and does not drink alcohol. According to the prescription monitoring system, the patient is filling appropriately. She is slightly past due to fill her opioid medications. Therefore, it is appropriate that she is out today. Her morphine milliequivalent is 40 MME per day. PHYSICAL EXAMINATION: GENERAL: This is alert and orientated, pleasant 64-year-old, rating her pain score today at 8/10. She is a good historian. HEENT: Normocephalic, atraumatic. She is wearing a mask. NECK: Subtle without localized tenderness. She has cervical radiculopathy radiating down her right arm. Pain is increased with cervical rotation and flexion. MUSCULOSKELETAL: She has pain in her right shoulder with abduction and internal and external rotation. She has diminished superintendent nonselling on her right side when compared to the left. She has positive Spurling's test with pain radiating down the C6-C7 dermatomal distribution. IMPRESSION: 1. Chronic pain syndrome with cervical radiculopathy. 2. Right shoulder pain. 3. Management of opioid medications under terms of written agreement. 4. Depression. We reviewed the fact that opiate medications are being used to provide analgesia adequate to support activities of daily living, not attempting to achieve a specific pain score on the 0-10 Visual Analog Scale. The current opiate medications are providing sufficient analgesia to allow the patient to participate in activities of daily living. The patient is not exhibiting any aberrant behavior suggestive of drug diversion. The patient is not having any adverse reactions to medications. The patient is not suffering from daytime somnolence or mental acuity changes. The patient is managing opiate-induced constipation with appropriate qyfb-wee-ndqbdcl agents and dietary considerations. The patient was counseled on concern for caution with operating a motor vehicle while using opiate medications. PLAN: 1. We discussed treatment options with the patient today. The patient recently underwent an injection in her right shoulder, which she found only beneficial to 20%. She is seeking out a third opinion for possible shoulder surgery. I encouraged her to keep us apprised of this visit and if she decides to have a right shoulder repair. We did discuss several exercises to keep her arm as [facility] [address] [place] [address] PAIN MANAGEMENT CONSULTATION Name: ERIKA RODRIGUEZ Room #: REG NIK De Oliveira#: [id number] Admission: 07/05/20 Attend Phys: Valencia Chase Discharge: Date of : 55 Report #: [id number] active as she is able. The patient verbalizes understanding. I have offered her a Voltaren gel as a form of nonsteroidal anti-inflammatory since she had been on oral medication of meloxicam that it did upset her stomach. This will be sent electronically encouraging her to utilize this gel on her shoulder 2-4 times a day. 2. The patient is having difficulty reaching her primary care doctor, requesting any names. We provided her with Dr. Price's name and did provide her with one month of her antidepressant medication. 3. The patient does report recently starting diazepam in place of her alprazolam from Dr. Cook. She is using this for anxiety, but also as a muscle relaxant. I have encouraged her to hold off on her Flexeril while taking the diazepam. We did talk about several medications that she takes that are central long-acting and would like to decrease one medication if we are able. The patient verbalizes understanding. 4. The patient will follow up in [address] Serjio Martínez has sent 2 months of her hydrocodone electronically but we will see her back on an as needed basis if need be. <ELECTRONICALLY SIGNED> By: Valencia Chase 07/10/20 0810 [id number] Valencia Chase /ly
== END ==
LOC: PAIN 07-02 10:07
PROVIDERS: ATTEND Clinical Nurse Specialist Adult Health
DX: M25.511 Pain in right shoulder (principal); G89.4 Chronic pain syndrome; F32.9 Major depressive disorder, single episode, unspecified; F11.20 Opioid dependence, uncomplicated; Z79.899 Other long term (current) drug therapy

== ENCOUNTER → 2020-08-20 | Outpatient (CLI) | payer OTHER ==
[~2020-08-20] VITALS: Ht 165.1 cm; Wt 108.9 kg
[2020-08-20 14:21] VITALS: BP 140/90
--- NOTE | 2020-08-20 14:28 | NUR ---
Pain Clinic Assessment: 1. History of Osteoarthritis: RIGHT SHOULDER History of Rheumatoid Arthritis: DENIES 2. Height: 5 ft. 5 in. 165.1 cm. Weight: 240.0 lb. oz. 108.864 kg. Patient's BMI: 39.9 3. Vital Signs: BP: 140/90 Pulse: 07 Resp: 18 Temp: 02 Sat: 94 ECG Mon: 4. Pain Intensity: 8 5. Fall Risk: Dizziness: N Needs help standing or walking: N Fallen in the last 3 months: N Fall risk comments: 6. Patient on Blood Thinner: None 7. History of Hypertension: Y 8. Opioid Therapy greater than 6 weeks: Y Opiate Contract Signed: 9. Risk Assessment Tool Provided: LOW-1 10. Functional Assessment Tool: 69/70 11. Recreational Drug Use: Never Drug Type: Tobacco Use: Current Every Day Smoker Tobacco Type: Cigarettes Amount or Packs/day: 6 PER DAY How Many Years: Alcohol Use: No Frequency: Quant:
== END | disposition home or self-care (01) ==
LOC: PAIN 06:52
PROVIDERS: ATTEND Anesthesiology Pain Medicine
DX: M25.511 Pain in right shoulder (principal); M19.011 Primary osteoarthritis, right shoulder; G89.29 Other chronic pain; I10 Essential (primary) hypertension; F17.210 Nicotine dependence, cigarettes, uncomplicated; Z98.890 Other specified postprocedural states; Z79.899 Other long term (current) drug therapy

== ENCOUNTER → 2020-10-18 | Outpatient (CLI) | payer OTHER ==
[~2020-10-18] VITALS: Ht 165.1 cm; Wt 111.6 kg
[~2020-10-18] MED LIST changes: +CELEBREX 200 M200 MG PO
[2020-10-18 14:48] VITALS: BP 154/99
--- NOTE | 2020-10-18 14:50 | NUR ---
Pain Clinic Assessment: 1. History of Osteoarthritis: RIGHT SHOULDER History of Rheumatoid Arthritis: DENIES 2. Height: 5 ft. 5 in. 165.1 cm. Weight: 246.0 lb. oz. 111.585 kg. Patient's BMI: 40.9 3. Vital Signs: BP: 154/99 Pulse: 94 Resp: 18 Temp: 02 Sat: 98 ECG Mon: 4. Pain Intensity: 9 5. Fall Risk: Dizziness: N Needs help standing or walking: N Fallen in the last 3 months: N Fall risk comments: 6. Patient on Blood Thinner: None 7. History of Hypertension: Y 8. Opioid Therapy greater than 6 weeks: Y Opiate Contract Signed: 9. Risk Assessment Tool Provided: LOW-1 10. Functional Assessment Tool: 69/70 11. Recreational Drug Use: Never Drug Type: Tobacco Use: Current Every Day Smoker Tobacco Type: Amount or Packs/day: How Many Years: Alcohol Use: No Frequency: Quant:
== END ==
LOC: PAIN 06:48
PROVIDERS: ATTEND Clinical Nurse Specialist Adult Health
DX: M75.101 Unspecified rotator cuff tear or rupture of right shoulder, not specified as traumatic (principal); M54.12 Radiculopathy, cervical region; G89.29 Other chronic pain; Z79.891 Long term (current) use of opiate analgesic; F32.9 Major depressive disorder, single episode, unspecified

== ENCOUNTER 2020-11-09 11:38 | Emergency (ER) | payer OTHER ==
[~2020-11-09] VITALS: Ht 165.1 cm; Wt 108.9 kg
[2020-11-09 13:05] LABS: ABSOLUTE NEUTROPHILS 3.9 thou/uL (1.4-8.2); BASOPHILS 1.4 % (0.0-2.0); EOSINOPHILS 0.7 % (0.0-3.0); HEMATOCRIT 46.4 % (37.0-47.0); HEMOGLOBIN 16.1 gm/dL (12.0-15.0); LYMPHOCYTES 26.8 % (24.0-44.0); MCH 33.5 pg (26.0-34.0); MCHC 34.6 g/dL (28.0-37.0); MCV 96.8 fL (80.0-100.0); MONOCYTES 6.9 % (1.0-8.0); PLATELET COUNT 220 thou/uL (150-400); POLYS 64.2 % (36.0-66.0); RBC 4.79 mil/uL (4.20-5.00); RDW 14.1 % (10.5-14.5); WBC 6.1 thou/uL (4.0-11.0)
[2020-11-09 13:18] LABS: ANION GAP 9 mmol/L (7-16); BUN 11 mg/dL (7-18); CALCIUM 9.9 mg/dL (8.5-10.1); CHLORIDE 104 mmol/L (98-107); CO2 28 mmol/L (21-32); CREATININE 0.9 mg/dL (0.6-1.0); GLUCOSE 122 mg/dL (74-106); POTASSIUM 3.3 mmol/L (3.5-5.1); SODIUM 141 mmol/L (136-145)
[2020-11-09 13:28] LABS: ALBUMIN 4.2 g/dL (3.4-5.0); LIPASE 92 U/L (73-393); SGOT 12 U/L (15-37); SGPT 23 U/L (14-59); TOTAL BILIRUBIN 0.9 mg/dL (0.2-1.0); TOTAL PROTEIN 8.5 g/dL (6.4-8.2); TROPONIN-I <0.06 ng/mL (<0.06)
[2020-11-09 13:32] LABS: URINE BLOOD NEGATIVE (Negative); URINE COLOR YELLOW; URINE GLUCOSE-RANDOM* TRACE (Negative); URINE KETONES 2+ (Negative); URINE LEUKOCYTES-REFLEX 1+ (Negative); URINE NITRITE-REFLEX NEGATIVE (Negative); URINE PROTEIN (DIPSTICK) 1+ (Negative); URINE SPECIFIC GRAVITY 1.025 (1.005-1.035)
[2020-11-09 13:33] LABS: URINE BILIRUBIN NEGATIVE (Negative); URINE CLARITY SL HAZY
[2020-11-09 13:34] LABS: ICTOTEST (BILI CONFIRMATORY) Negative (Negative)
[2020-11-09 13:36] LABS: SQUAMOUS 4-10 Moderate /LPF (0-3); URINE WBC-REFLEX 6-15 Few /HPF (0-5)
[2020-11-09 13:37] LABS: CASTS None Seen /LPF (None Seen); MUCUS 0-3 Light strn/LPF (None Seen); URINE RBC None Seen /HPF (0-2)
[2020-11-09 13:38] LABS: CALCIUM OXALATE 0-3 Few /LPF (None Seen)
--- NOTE | 2020-11-09 14:54 | EKG ---
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
[2020-11-09] MEDS ORDERED: ZOFRAN ODT4 MG PO ×2 (17:48→18:10)
[2020-11-09 18:44] VITALS: BP 157/94
== END 2020-11-09 18:45 | disposition home or self-care (01) ==
LOC: ER 11:38
PROVIDERS: Emergency Medicine
DX: K52.9 Noninfective gastroenteritis and colitis, unspecified (principal); F17.210 Nicotine dependence, cigarettes, uncomplicated; Z79.899 Other long term (current) drug therapy; Z90.49 Acquired absence of other specified parts of digestive tract

== ENCOUNTER 2020-11-13 10:14 | Inpatient (IN) | payer OTHER ==
[~2020-11-13] VITALS: Ht 165.1 cm; Wt 109.1 kg
[2020-11-13 10:15] VITALS: BP 138/105
[2020-11-13 10:44] LABS: BASOPHILS 0.5 % (0.0-2.0); EOSINOPHILS 0.9 % (0.0-3.0); HEMATOCRIT 48.3 % (37.0-47.0); HEMOGLOBIN 16.7 gm/dL (12.0-15.0); LYMPHOCYTES 14.4 % (24.0-44.0); MCH 32.9 pg (26.0-34.0); MCHC 34.5 g/dL (28.0-37.0); MCV 95.5 fL (80.0-100.0); MONOCYTES 8.8 % (1.0-8.0); PLATELET COUNT 246 thou/uL (150-400); POLYS 75.4 % (36.0-66.0); RBC 5.06 mil/uL (4.20-5.00); RDW 13.9 % (10.5-14.5)
[2020-11-13 11:42] LABS: ALBUMIN 3.5 g/dL (3.4-5.0); CALCIUM 9.5 mg/dL (8.5-10.1); CREATININE 0.9 mg/dL (0.6-1.0); TOTAL BILIRUBIN 1.1 mg/dL (0.2-1.0); TOTAL PROTEIN 7.8 g/dL (6.4-8.2)
[2020-11-13 11:44] LABS: POTASSIUM 2.7 mmol/L (3.5-5.1)
[2020-11-13 11:52] LABS: URINE BLOOD 1+ (Negative); URINE CLARITY SL CLOUDY; URINE COLOR YELLOW; URINE GLUCOSE-RANDOM* NEGATIVE (Negative); URINE KETONES 1+ (Negative); URINE NITRITE-REFLEX NEGATIVE (Negative); URINE PROTEIN (DIPSTICK) 2+ (Negative); URINE SPECIFIC GRAVITY 1.015 (1.005-1.035)
[2020-11-13 12:00] LABS: ICTOTEST (BILI CONFIRMATORY) Negative (Negative); URINE BILIRUBIN NEGATIVE (Negative); URINE LEUKOCYTES-REFLEX 1+ (Negative)
[2020-11-13 12:13] LABS: SQUAMOUS 4-10 Moderate /LPF (0-3)
[2020-11-13 12:14] LABS: AMORPHOUS URATES Few /LPF (None Seen); BACTERIA-REFLEX 1-9 Few /HPF (None Seen); HYALINE CASTS 0-3 Few /LPF (None Seen); URINE RBC 3-10 Few /HPF (0-2); URINE WBC-REFLEX 6-15 Few /HPF (0-5)
[2020-11-13 16:54] LABS: AMP/METHAMP Negative (Negative); BARBITURATES Negative (Negative); BENZODIAZEPINES POSITIVE (Negative); COCAINE Negative (Negative); METHADONE Negative (Negative); OPIATES POSITIVE (Negative); PCP Negative (Negative)
--- NOTE | 2020-11-13 17:19 | EKG ---
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 : 1955 Requested By: Trav Anna Order Number: [id number] MD: Anastacio Peace Measurements Intervals [place] Rate: 100 P: 51 SD: 152 QRS: 32 QRSD: 99 T: 34 QT: 371 QTc: 479 Interpretive Statements Sinus tachycardia Left atrial enlargement RSR' in V1 or V2, right VCD Anterior T wave abnormality Borderline prolonged QT interval Compared to ECG 11/09/2020 12:04:43 No significant change was found Electronically Signed On 11-13-2020 17:18:50 CDT by Anastacio Peace [email or web address] <ELECTRONICALLY SIGNED> By: Anastacio Peace MD, [facility] 11/13/20 1718 1044 1044 Anastacio Peace MD, [facility] /EPI
[2020-11-13 18:55] VITALS: BP 183/110
[2020-11-13 19:21] VITALS: BP 162/89
--- NOTE | 2020-11-13 20:21 | NUR ---
PT ARRIVED FROM ER VIA CART. PLACED IN ROOM 354. COVID SWAB RESULTED "NEGATIVE" AT APPROXIMATELY SAME TIME PT ARRIVED. PT DENIES ANY SOA, COUGH, FEVER OR CHILLS. NO CXR DONE BY ER. ON ROOM AIR. ISOLATION FOR COVID-19 DISCONTINUED. 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 PT TO BE TRANSFERED TO ROOM 200. REPORT GIVEN TO MOE WAGNER.
[2020-11-13 20:23] VITALS: BP 130/92
[2020-11-13 21:00] VITALS: BP 127/92
[2020-11-13 23:20] VITALS: BP 180/104
--- NOTE | 2020-11-14 01:40 | NUR ---
RECEIVED REPORT FROM KARLA Abad RN.PT ARRIVED TO ROOM 200 AROUND 2100. WAS HERE TOO.MORPHINE AND DIAZEPAM GIVEN;VERBALIZED RELIEF.ELEVATED BP;HYDRALAZINE GIVEN.MONITOR SHOWS SINUS TACHY.POC CONTINUED.
[2020-11-14 04:45] VITALS: BP 169/104
[2020-11-14 05:31] LABS: ABSOLUTE NEUTROPHILS 7.7 thou/uL (1.4-8.2); EOSINOPHILS 1.5 % (0.0-3.0); HEMATOCRIT 43.9 % (37.0-47.0); HEMOGLOBIN 14.8 gm/dL (12.0-15.0); MCHC 33.6 g/dL (28.0-37.0); MONOCYTES 10.2 % (1.0-8.0); PLATELET COUNT 181 thou/uL (150-400); POLYS 71.3 % (36.0-66.0); RBC 4.48 mil/uL (4.20-5.00); RDW 13.7 % (10.5-14.5); WBC 10.8 thou/uL (4.0-11.0)
[2020-11-14 05:48] LABS: CALCIUM 8.9 mg/dL (8.5-10.1); CREATININE 0.8 mg/dL (0.6-1.0); MAGNESIUM 1.6 mg/dL (1.8-2.4)
[2020-11-14 06:12] LABS: POTASSIUM 2.9 mmol/L (3.5-5.1)
[2020-11-14 08:20] VITALS: BP 155/114
[2020-11-14 12:01] VITALS: BP 163/91
--- NOTE | 2020-11-14 14:45 | NUR ---
PT ALERT AND ORIENTED TIMES FOUR. VSS, PT DENIES PAIN/SOA. C/O N/V PRN MEDICATIONS GIVEN WITH GOOD RELEIF. PT TOLERATES MEDS AND CLEAR LIQUIDS. PT UP TO BSC WITH ASSIST OF ONE. SPOKE WITH PT TO UPDATE ON CARE. WILL CONTINUE TO MONITOR.
[2020-11-14 15:00] VITALS: BP 133/86
[2020-11-14 19:30] VITALS: BP 169/88
[2020-11-15 05:00] VITALS: BP 130/67
--- NOTE | 2020-11-15 06:38 | NUR ---
SLEPT ALMOST ALL NIGHT.NAUSEATED THIS MORNING.ZOFRAN GIVEN.NO BM YET.NPO SINCE MIDNIGHT FOR A POSSIBLE PROCEDURE TODAY.MONITOR SHOWS SR,ST.POC CONTINUED.
[2020-11-15 08:13] VITALS: BP 138/88
[2020-11-15 08:57] LABS: CALCIUM 8.7 mg/dL (8.5-10.1); CREATININE 0.7 mg/dL (0.6-1.0); MAGNESIUM 1.8 mg/dL (1.8-2.4); POTASSIUM 3.4 mmol/L (3.5-5.1)
[2020-11-15 11:58] VITALS: BP 126/73
--- NOTE | 2020-11-15 13:15 | NUR ---
Note Given: Y Facility List Provided:Y Facility Zaida: None chosen at this time Jillian Escobedo NP discussed BPCI with this pt 11/15/2020
[2020-11-15 15:48] VITALS: BP 140/85
--- NOTE | 2020-11-15 16:03 | NUR ---
PT HAD EGD TODAY. PT REPORTS FEELING BETTER THIS EVENING W/ NO NAUSEA AND NO C/O PAIN AT THIS TIME. PT STATES SHE IS HUNGRY AND WANTS TO ORDER DINNER. PT REPORTS THAT THE GI DOCTOR TOLD HER TO EAT SLOWLY TO AVOID DISCOMFORT. PT PROGRESSING TOWARD GOALS AT THIS TIME.
[2020-11-15 19:40] VITALS: BP 115/60
[2020-11-16 03:40] VITALS: BP 97/58
--- NOTE | 2020-11-16 06:47 | NUR ---
ASSUME CARE 1900. PT/VITALS STABLE. INTERMITTENT ABD/LOWER BACK PAIN WITH RELIEF FROM MORPHINE. GOOD ENDURANCE TO ACTIVITY. ASSESSMENT CHARTED. PROGRESSING WELL WITH POC. PLAN IS TO CONTINUE TO MONITOR AND MANAGE BOWEL FUNCTION/ABDO PAIN. WILL CONTINUE TO FOLLOW WITH POC
[2020-11-16 07:43] VITALS: BP 119/78
[2020-11-16 10:58] VITALS: BP 113/59
[2020-11-16] MEDS ORDERED: MIRALAX119 GM PO (12:09)
[2020-11-16] MEDS ORDERED: SENNA PLUS TAB1 EACH PO (12:09)
[2020-11-16 13:08] VITALS: BP 113/59
--- NOTE | 2020-11-16 13:25 | NUR ---
PT PROGRESSING TOWARDS DISCHARGE AFTER MIRALAX AND BISOCDYL SUPP, PT WAS ABLE TO HAVE A BM. DISCHARGE ORDER IS PLACED AND INSTRUCTIONS ARE GIVEN
== END 2020-11-16 14:39 | disposition home or self-care (01) | DRG 872 ==
LOC: ER 10:14 → 2N 13:18 → EROBS 13:18 → 2N 19:25 → 3W 19:28 → 2N 20:52
PROVIDERS: Emergency Medicine; Nurse Practitioner; ADMIT Internal Medicine; ATTEND Internal Medicine
PROC: 0DJ08ZZ Inspection of Upper Intestinal Tract, Via Natural or Artificial Opening Endoscopic (ICD-10-PCS; principal; 2020-11-15)
DX: A41.9 Sepsis, unspecified organism (principal); N39.0 Urinary tract infection, site not specified; I16.0 Hypertensive urgency; Z20.822 Contact with and (suspected) exposure to COVID-19; I10 Essential (primary) hypertension; E86.0 Dehydration; E03.9 Hypothyroidism, unspecified; E87.6 Hypokalemia; M19.90 Unspecified osteoarthritis, unspecified site; F32.9 Major depressive disorder, single episode, unspecified; R53.81 Other malaise; F17.210 Nicotine dependence, cigarettes, uncomplicated; G89.29 Other chronic pain; K59.00 Constipation, unspecified; E83.42 Hypomagnesemia; A08.4 Viral intestinal infection, unspecified; Z90.49 Acquired absence of other specified parts of digestive tract; Z79.891 Long term (current) use of opiate analgesic; Z86.010 Personal history of colon polyps
CPT/HCPCS: 10081; 62110; 62900; 70005

== ENCOUNTER → 2020-12-13 | Outpatient (CLI) | payer OTHER ==
[~2020-12-13] VITALS: Ht 165.1 cm; Wt 104.9 kg
[~2020-12-13] MED LIST changes: +MIRALAX119 GM PO; +NARCAN4 MG NARES; +SENNA PLUS TAB1 EACH PO
[2020-12-13 12:55] VITALS: BP 131/91
--- NOTE | 2020-12-13 13:10 | NUR ---
Pain Clinic Assessment: 1. History of Osteoarthritis: RIGHT SHOULDER History of Rheumatoid Arthritis: DENIES 2. Height: 5 ft. 5 in. 165.1 cm. Weight: 231.2 lb. oz. 104.872 kg. Patient's BMI: 38.5 3. Vital Signs: BP: 131/91 Pulse: 95 Resp: 20 Temp: 02 Sat: 97 ECG Mon: 4. Pain Intensity: 9 5. Fall Risk: Dizziness: N Needs help standing or walking: N Fallen in the last 3 months: N Fall risk comments: 6. Patient on Blood Thinner: None 7. History of Hypertension: Y 8. Opioid Therapy greater than 6 weeks: Y Opiate Contract Signed: 9. Risk Assessment Tool Provided: LOW-1 10. Functional Assessment Tool: 69/70 11. Recreational Drug Use: Never Drug Type: Tobacco Use: Current Every Day Smoker Tobacco Type: Cigarettes Amount or Packs/day: 1 How Many Years: 40 Alcohol Use: No Frequency: Quant:
== END ==
LOC: PAIN 10:51
PROVIDERS: ATTEND Clinical Nurse Specialist Adult Health
DX: M25.511 Pain in right shoulder (principal); M54.12 Radiculopathy, cervical region; F32.9 Major depressive disorder, single episode, unspecified; Z88.8 Allergy status to other drugs, medicaments and biological substances; Z79.899 Other long term (current) drug therapy

== ENCOUNTER → 2021-01-31 | Outpatient (CLI) | payer OTHER ==
[~2021-01-31] VITALS: Ht 167.6 cm; Wt 105.8 kg
[2021-01-31 13:44] VITALS: BP 144/89
--- NOTE | 2021-01-31 13:54 | NUR ---
Pain Clinic Assessment: 1. History of Osteoarthritis: RIGHT SHOULDER History of Rheumatoid Arthritis: DENIES 2. Height: 5 ft. 6 in. 167.6 cm. Weight: 233.2 lb. oz. 105.779 kg. Patient's BMI: 37.7 3. Vital Signs: BP: 144/89 Pulse: 92 Resp: 18 Temp: 02 Sat: 94 ECG Mon: 4. Pain Intensity: 7 WITH MEDS 5. Fall Risk: Dizziness: N Needs help standing or walking: N Fallen in the last 3 months: N Fall risk comments: 6. Patient on Blood Thinner: None 7. History of Hypertension: Y 8. Opioid Therapy greater than 6 weeks: Y Opiate Contract Signed: 9. Risk Assessment Tool Provided: LOW-1 10. Functional Assessment Tool: 69/70 11. Recreational Drug Use: Never Drug Type: Tobacco Use: Current Every Day Smoker Tobacco Type: Amount or Packs/day: How Many Years: Alcohol Use: No Frequency: Quant:
== END ==
LOC: PAIN 11:08
PROVIDERS: ATTEND Clinical Nurse Specialist Adult Health
DX: M75.101 Unspecified rotator cuff tear or rupture of right shoulder, not specified as traumatic (principal); G89.29 Other chronic pain; M54.12 Radiculopathy, cervical region; M25.511 Pain in right shoulder; I10 Essential (primary) hypertension; F17.200 Nicotine dependence, unspecified, uncomplicated; F32.9 Major depressive disorder, single episode, unspecified; Z79.891 Long term (current) use of opiate analgesic; Z79.899 Other long term (current) drug therapy

== ENCOUNTER → 2021-05-02 | Outpatient (CLI) | payer OTHER ==
[~2021-05-02] VITALS: Ht 152.4 cm; Wt 110.2 kg
[2021-05-02 14:01] VITALS: BP 140/99
--- NOTE | 2021-05-02 14:09 | NUR ---
Pain Clinic Assessment: 1. History of Osteoarthritis: RIGHT SHOULDER History of Rheumatoid Arthritis: DENIES 2. Height: 5 ft. 6 in. 152.4 cm. Weight: 243.0 lb. oz. 110.224 kg. Patient's BMI: 47.5 3. Vital Signs: BP: 140/99 Pulse: 90 Resp: 20 Temp: 02 Sat: 99 ECG Mon: 4. Pain Intensity: 1 WITH MEDS 9 WITHOUT 5. Fall Risk: Dizziness: N Needs help standing or walking: N Fallen in the last 3 months: N Fall risk comments: 6. Patient on Blood Thinner: None 7. History of Hypertension: Y 8. Opioid Therapy greater than 6 weeks: Y Opiate Contract Signed: 9. Risk Assessment Tool Provided: LOW-1 10. Functional Assessment Tool: 69/70 11. Recreational Drug Use: Never Drug Type: Tobacco Use: Current Every Day Smoker Tobacco Type: Amount or Packs/day: How Many Years: Alcohol Use: No Frequency: Quant:
== END ==
LOC: PAIN 11:05
PROVIDERS: ATTEND Clinical Nurse Specialist Adult Health
DX: M54.12 Radiculopathy, cervical region (principal); F32.9 Major depressive disorder, single episode, unspecified; Z79.891 Long term (current) use of opiate analgesic; Z79.899 Other long term (current) drug therapy

== ENCOUNTER → 2021-07-22 | Outpatient (CLI) | payer OTHER ==
[~2021-07-22] VITALS: Ht 167.6 cm; Wt 120.1 kg
[~2021-07-22] MED LIST changes: +BENICAR HCT 201 EACH PO; +CRESTOR20 MG PO; +FOSAMAX 70 MG T70 MG PO; -LEVOTHYROXIN0.075 MG PO; +SYNTHROID50 MCG
[2021-07-22 14:22] VITALS: BP 145/82
--- NOTE | 2021-07-22 14:22 | NUR ---
Pain Clinic Assessment: 1. History of Osteoarthritis: RIGHT SHOULDER History of Rheumatoid Arthritis: DENIES 2. Height: 5 ft. 6 in. 167.6 cm. Weight: 264.8 lb. oz. 120.113 kg. Patient's BMI: 42.8 3. Vital Signs: BP: 145/82 Pulse: 88 Resp: 20 Temp: 02 Sat: 91 ECG Mon: 4. Pain Intensity: 7 5. Fall Risk: Dizziness: N Needs help standing or walking: N Fallen in the last 3 months: N Fall risk comments: 6. Patient on Blood Thinner: None 7. History of Hypertension: Y 8. Opioid Therapy greater than 6 weeks: Y Opiate Contract Signed: 9. Risk Assessment Tool Provided: LOW-1 10. Functional Assessment Tool: 69/70 11. Recreational Drug Use: Never Drug Type: Tobacco Use: Current Every Day Smoker Tobacco Type: Amount or Packs/day: How Many Years: Alcohol Use: No Frequency: Quant:
== END ==
LOC: PAIN 09:22
PROVIDERS: ATTEND Anesthesiology Pain Medicine
DX: G89.29 Other chronic pain (principal); M25.511 Pain in right shoulder; M25.512 Pain in left shoulder; M54.50 Low back pain, unspecified; F41.9 Anxiety disorder, unspecified; F34.89 Other specified persistent mood disorders; Z79.899 Other long term (current) drug therapy

== ENCOUNTER → 2021-09-30 | Outpatient (CLI) | payer OTHER ==
[~2021-09-30] VITALS: Ht 165.1 cm; Wt 122.4 kg
[~2021-09-30] MED LIST changes: +ENDOCET 7.5-321 EACH PO
[2021-09-30 13:56] VITALS: BP 116/84
--- NOTE | 2021-09-30 14:14 | NUR ---
Pain Clinic Assessment: 1. History of Osteoarthritis: RIGHT SHOULDER History of Rheumatoid Arthritis: DENIES 2. Height: 5 ft. 5 in. 165.1 cm. Weight: 269.8 lb. oz. 122.381 kg. Patient's BMI: 44.9 3. Vital Signs: BP: 116/84 Pulse: 97 Resp: 20 Temp: 02 Sat: 98 ECG Mon: 4. Pain Intensity: 7 5. Fall Risk: Dizziness: N Needs help standing or walking: N Fallen in the last 3 months: N Fall risk comments: 6. Patient on Blood Thinner: None 7. History of Hypertension: Y 8. Opioid Therapy greater than 6 weeks: Y Opiate Contract Signed: 9. Risk Assessment Tool Provided: LOW-1 10. Functional Assessment Tool: 69/70 11. Recreational Drug Use: Never Drug Type: Tobacco Use: Current Every Day Smoker Tobacco Type: Amount or Packs/day: How Many Years: Alcohol Use: No Frequency: Quant:
== END | disposition home or self-care (01) ==
LOC: PAIN 08-15 09:16
PROVIDERS: ATTEND Anesthesiology Pain Medicine
DX: M19.011 Primary osteoarthritis, right shoulder (principal); M19.012 Primary osteoarthritis, left shoulder; M54.12 Radiculopathy, cervical region; G89.29 Other chronic pain; I10 Essential (primary) hypertension; F17.210 Nicotine dependence, cigarettes, uncomplicated; F32.89 Other specified depressive episodes; Z79.891 Long term (current) use of opiate analgesic; Z98.890 Other specified postprocedural states; Z79.899 Other long term (current) drug therapy